=== PATIENT | male | born 2000 | race Two or more races ===

== ENCOUNTER 2018-09-13 23:03 | Emergency (ER) | payer MEDICAID ==
[~2018-09-13] VITALS: Ht 180.3 cm; Wt 120.2 kg
--- NOTE | 2018-09-13 23:58 | NUR ---
ED Nurse Note: pT AMBULATED TO ED FROM HOME , c/o cough x3days. 9/10 pain in lungs. VSS, denies fever at home
[2018-09-13 23:59] VITALS: BP 119/80
[2018-09-14] MEDS ORDERED: Albuterol ud Inhalation HHN ONE (00:15)
--- NOTE | 2018-09-14 01:00 | NUR ---
ED Nurse Note: pt sitting upright with breathing tcx, tolerating well, pt reports feeling/breathing better, will continue to monitor
[2018-09-14] MEDS ORDERED: IBUPROFEN600 MG ORAL (01:27)
[2018-09-14] MEDS ORDERED: PREDNISONE20 MG ORAL (01:27)
[2018-09-14] MEDS ORDERED: ZITHROMAX250 MG ORAL (01:27)
--- NOTE | 2018-09-14 01:27 | Emergency Room Report ---
History of Present Illness General Chief Complaint: Upper Respiratory Illness Source: Patient Present Illness HPI Is a 18-year-old male with a history of asthma. He presents with chief complaint of cough and congestion. On said for the last 3 days. No fever no chills. Coughing is severe. Nonproductive nature. Now is with right rib pain and back pain. Seen his primary care doctor prescribed cough medicine and albuterol. He said is not helping. Allergies: Coded Allergies: No Known Allergies (Unverified , 09/13/18) Patient History Past Medical History: see triage record, old chart reviewed, asthma Past Surgical History: none Pertinent Family History: none Social History: Denies: smoking Immunizations: other Reviewed Nursing Documentation: PMH: Agreed; PSxH: Agreed Nursing Documentation-PMH Past Medical History: No History, Except For Hx Asthma: Yes Review of Systems Eye: Denies: eye pain, blurred vision ENT: Denies: ear pain, nose congestion, throat swelling Respiratory: Reports: cough, shortness of breath, wheezing Cardiovascular: Denies: chest pain, palpitations Gastrointestinal: Denies: abdominal pain, diarrhea, nausea, vomiting Musculoskeletal: Denies: back pain, joint pain Skin: Denies: rash Neurological: Denies: headache, numbness Endocrine: Denies: increased thirst, increased urine Hematologic/Lymphatic: Denies: easy bruising All Other Systems: negative except mentioned in HPI Physical Exam Vital Signs Date Time Temp Pulse Resp B/P (MAP) Pulse Ox O2 Delivery O2 Flow Rate FiO2 09/13/18 23:30 98.8 113 15 119/80 (93) 96 Room Air 09/14/18 00:12 21 Vitals with tachycardia Sp02 EP Interpretation: reviewed, normal General Appearance: well appearing, no apparent distress, alert Head: normocephalic, atraumatic Eyes: bilateral eye PERRL, bilateral eye EOMI ENT: hearing grossly normal, normal pharynx Neck: full range of motion, supple, no meningismus Respiratory: chest non-tender, normal breath sounds, other - Severe coughing with inspiration Cardiovascular #1: regular rate, rhythm, no murmur Gastrointestinal: normal bowel sounds, non tender, no mass, no organomegaly, no bruit, non-distended Musculoskeletal: back normal, gait/station normal, normal range of motion Psychiatric: mood/affect normal Medical Decision Making Diagnostic Impression: Primary Impression: Upper respiratory infection Qualified Codes: J06.9 - Acute upper respiratory infection, unspecified ER Course Patient presents with upper restaurant infection. Most likely viral. Symptoms getting worse, will put on antibiotics. No evidence of ACS, PE, dissection to name a few. Better after breathing treatment. Last Vital Signs Date Time Temp Pulse Resp B/P (MAP) Pulse Ox O2 Delivery O2 Flow Rate FiO2 09/14/18 00:40 120 22 99 Room Air 21 09/13/18 23:59 98.8 119/80 Status: improved Disposition: HOME, SELF-CARE Condition: Stable Scripts Azithromycin* (ZITHROMAX*) 250 Mg Tablet 250 MG ORAL DAILY, #6 TAB 0 Refills Take two tables once daily for 1 day, then one tablet once daily for 4 days. Prov: Baljit Mcguire MD 09/14/18 Prednisone* (PREDNISONE*) 20 Mg Tablet 40 MG ORAL DAILY, #8 TAB Prov: Baljit Mcguire MD 09/14/18 Ibuprofen* (MOTRIN*) 600 Mg Tablet 600 MG ORAL THREE TIMES A DAY, #30 TAB 0 Refills Prov: Baljit Mcguire MD 09/14/18 Referrals: [facility],REFERRING (PCP) Patient Instructions: Upper Respiratory Infection, Adult Additional Instructions: Follow up with your doctor in 7 days. Return if worse. Continue with your inhaler and cough medicine. Baljit Mcguire MD Sep 14, 2018 01:27
[2018-09-14 01:29] VITALS: BP 119/80
--- NOTE | 2018-09-14 01:29 | NUR ---
ER DISCHARGE NOTE: Patient is cleared to be discharged per ERMD, pt is aox4, on room air, with stable vital signs. pt was given dc and prescription instructions, pt was able to verbalize understanding, pt id band removed. pt is able to ambulate with steady gait. pt took all belongings.
== END 2018-09-14 01:29 | disposition home or self-care (01) ==
LOC: EMR 23:59
DX: J06.9 Acute upper respiratory infection, unspecified (principal); R07.81 Pleurodynia; M54.9 Dorsalgia, unspecified
CPT/HCPCS: 94640; 94664; 99283; J7512

== ENCOUNTER 2019-02-02 23:26 | Emergency (ER) | payer MEDICAID ==
[~2019-02-02] VITALS: Ht 180.3 cm; Wt 117.9 kg
[~2019-02-02 23:26] MED LIST: IBUPROFEN600 MG ORAL; PREDNISONE20 MG ORAL; ZITHROMAX250 MG ORAL
[2019-02-02 23:37] VITALS: BP 147/98
--- NOTE | 2019-02-02 23:37 | NUR ---
ED Nurse Note: Patient walke din to ED c/o SOB and asthma attack. 98% RA. As per patient, he has been using breathiong tx at home but it doesnt alleviate the symptom. Afebrile. Breathing even and unlabored. VSS. Addendum: 02/02/19 at 2353 by [facility] ED Nurse Note: Patient is noted with dry cough.
--- NOTE | 2019-02-03 00:15 | NUR ---
Kyung san in EDM - 02/03/19 at 0109 by [facility] ED Nurse Note: Xray at bedside.
--- NOTE | 2019-02-03 00:30 | NUR ---
ED Nurse Note: RT at bedside for breathing tx.
[2019-02-03] MEDS: Albuterol/Ipratropium 3ml neb HHN SCH ×3 (00:33→00:54)
--- NOTE | 2019-02-03 00:59 | Emergency Room Report ---
History of Present Illness General Chief Complaint: Asthma Source: Patient Present Illness HPI 18-year-old male presents with wheezing for 2-week duration. Patient reported seeing his primary care doctor, for wheezing and asthma exacerbation. He was prescribed Phenergan, Augmentin for 7 days, last dose 1 week ago. Patient reports his symptoms of nonproductive cough have not been improving. He is used his inhaler 4 times today, and nebulizer treatment 2 times with minimal change. Patient denies any fever. Patient is unable to get influenza vaccination due to severe asthma. Patient denies any prior history of intubations. He has not been recently treated with steroids. Allergies: Coded Allergies: No Known Allergies (Unverified , 09/13/18) Nursing Documentation-[facility] Past Medical History: No History, Except For Hx Asthma: Yes Review of Systems Constitutional: Denies: chills, fever Respiratory: Reports: cough, shortness of breath Cardiovascular: Denies: chest pain, palpitations Gastrointestinal: Denies: diarrhea, vomiting Genitourinary: Denies: hematuria, pain Musculoskeletal: Denies: joint swelling Skin: Denies: rash, lesions Neurological: Denies: headache, dizziness Physical Exam Vital Signs Date Time Temp Pulse Resp B/P (MAP) Pulse Ox O2 Delivery O2 Flow Rate FiO2 02/02/19 23:31 98.1 100 21 147/98 (114) 97 Room Air 02/03/19 00:36 21 Sp02 EP Interpretation: reviewed General Appearance: well appearing, no apparent distress, non-toxic Head: normocephalic, atraumatic Eyes: bilateral eye normal inspection ENT: hearing grossly normal, EOM grossly intact, moist mucus membranes Neck: supple Respiratory: lungs clear, normal breath sounds, no respiratory distress, speaking full sentences, wheezing - mild expiratory Cardiovascular #1: regular rate, rhythm, no edema, no gallop, normal capillary refill Cardiovascular #2: 2+ radial (R), 2+ radial (L) Gastrointestinal: soft, non-distended Rectal: deferred Musculoskeletal: moves extm spontaneously, no lower extremity edema Neurologic: grossly normal Psychiatric: mood/affect normal Skin: warm/dry, normal turgor Medical Decision Making Diagnostic Impression: Primary Impression: Asthma exacerbation ER Course 19-year old male with history of asthma, presents with 2 weeks of cough failed outpatient antibiotics and treatment. Unable to get influenza vaccination Mild wheezing on exam, no respiratory distress, no stridor, no tachypnea, oxygen 100% on room air. ED course: We will perform chest x-ray, influenza testing, treatment with steroids and nebulizer, reassess Microbiology Date/Time Source Procedure Growth Status 02/02/19 23:57 Nasal Nares - Final Complete 02/02/19 23:57 Nasal Nares - Final Complete Lab Results Impression Influenza testing negative Chest X-Ray Diagnostic Results Chest X-Ray Diagnostic Results : Chest X-Ray Ordered: Yes # of Views/Limited/Complete: 2 View Indication: Shortness of Breath EP Interpretation: Yes Interpretation: no consolidation, no effusion, no pneumothorax, no acute cardiopulmonary disease Last Vital Signs Date Time Temp Pulse Resp B/P (MAP) Pulse Ox O2 Delivery O2 Flow Rate FiO2 02/03/19 00:49 88 26 98 Room Air 21 97 30 99 02/02/19 23:37 98.1 147/98 Reevaluation Impression Patient's wheezing improved on repeat exam. Patient stable for outpatient follow-up and discharge. Patient has no signs of respiratory distress, stridor , hypoxia. Recommended patient take course of steroids and use nebulizer, inhaler 4 times daily. Given patient clear return precautions. Patient shows understanding of asthma attack plan and follow-up Disposition: HOME, SELF-CARE Condition: Stable Scripts Prednisone* (PREDNISONE*) 20 Mg Tablet 40 MG ORAL DAILY for 5 Days, #5 TAB Prov: Breezy Cotter M.D. 02/03/19 Albuterol Sulfate* (ALBUTEROL SULFATE MDI*) 8.5 Gm Hfa.aer.ad 2 PUFF INH Q4H PRN for cough/wheezing, #1 EA 0 Refills Prov: Breezy Cotter M.D. 02/03/19 Referrals: NON PHYSICIAN (PCP) Patient Instructions: Asthma, Adult Breezy Cotter M.D. Feb 03, 2019 00:59
--- NOTE | 2019-02-03 01:09 | NUR ---
ED Nurse Note: Patient was taken for Xray.
--- NOTE | 2019-02-03 01:22 | NUR ---
ED Nurse Note: Patient came back from Xray. Ambulatory. Not in any distress.
[2019-02-03] MEDS ORDERED: PREDNISONE20 MG ORAL (01:51)
[2019-02-03] MEDS ORDERED: ALBUTEROL SULF8.5 GM INH (01:51)
[2019-02-03 02:05] VITALS: BP 138/83
--- NOTE | 2019-02-04 08:27 | Diagnostic Imaging Report ---
Indication: Shortness of breath, cough Technique: 2 views of the chest Comparison: None Findings: Lungs and pleural spaces are clear. The heart size is normal. The bones are unremarkable. No significant interim change. Impression: Negative
== END 2019-02-03 02:06 | disposition home or self-care (01) ==
LOC: EMR 23:40
DX: J45.901 Unspecified asthma with (acute) exacerbation (principal); Z79.899 Other long term (current) drug therapy
CPT/HCPCS: 71046; 86710; J7512; Z7502; 99284; J7620